=== PATIENT | female | born 1955 | race Asian ===

== ENCOUNTER 2018-01-27 14:43 | Inpatient (IN) | payer MEDICARE, MEDICAID ==
[~2018-01-27] VITALS: Ht 152.4 cm; Wt 93.9 kg
[~2018-01-27 14:43] MED LIST: LEVOTHYROXINE25 MCG ORAL; LOSARTAN POTAS100 MG ORAL; NIFEDIPINE ER30 MG ORAL; SIMVASTATIN40 MG ORAL; TOLTERODINE TART4 MG; UNOBMED
[2018-01-27 15:12] VITALS: BP 105/60
[2018-01-27] MEDS ORDERED: Ipratropium 0.02% Inh Soln 2.5ml UD HHN ONE (15:15)
[2018-01-27] MEDS ORDERED: Levalbuterol Inh UD 1.25mg/0.5ml HHN ONE (15:15)
--- NOTE | 2018-01-27 15:56 | Diagnostic Imaging Report ---
Indication: Dyspnea Comparison: 06/15/2014 A single view chest radiograph was obtained. Findings: There is pulmonary vascular prominence and cephalization with suggestion of mild interstitial edema. The heart is enlarged. Bones are osteopenic. IMPRESSION: Suspicion of mild CHF. Correlate clinically
[2018-01-27 16:15] LABS: BASOPHILS % (AUTO) 1.4 % (0.0-2.0); EOSINOPHILS % (AUTO) 1.9 % (0.0-3.0); HEMATOCRIT 44.1 % (37.0-47.0); HEMOGLOBIN 14.9 G/DL (12.0-16.0); LYMPHOCYTES % (AUTO) 31.2 % (20.0-45.0); MEAN CORPUSCULAR VOLUME 90 FL (80-99); MONOCYTES % (AUTO) 6.7 % (1.0-10.0); NEUTROPHILS % (AUTO) 58.9 % (45.0-75.0); PLATELET COUNT 241 K/UL (150-450); RED BLOOD COUNT 4.92 M/UL (4.20-5.40); RED CELL DISTRIBUTION WIDTH 12.9 % (11.6-14.8); WHITE BLOOD COUNT 6.9 K/UL (4.8-10.8)
--- NOTE | 2018-01-27 16:23 | Emergency Room Report ---
History of Present Illness General Chief Complaint: Dyspnea/Respdistress Source: Patient, Medical Record Present Illness HPI 62-year-old female presents ED for evaluation. Patient complaining of shortness of breath. Started today. Patient was seen at PMD office today where she developed shortness of breath. Had EKG which showed A. fib and was referred here. PMD is Dr. Samayoa. Patient complaining of bilateral leg swelling. Denies chest pain. Denies fevers or chills. No other aggravating or relieving factors. Denies any other associated symptoms Allergies: Coded Allergies: MEPERIDINE (Verified Allergy, Unknown, 06/14/14) SULFAMETHOXAZOLE (Verified Allergy, Unknown, 06/14/14) TRIMETHOPRIM (Verified Allergy, Unknown, 06/14/14) Patient History Past Medical History: HTN, CVA/TIA Social History: Denies: smoking, alcohol use, drug use Now: No Immunizations: UTD Reviewed Nursing Documentation: PMH: Agreed; PSxH: Agreed Nursing Documentation-PMH Past Medical History: No History, Except For Hx Cardiac Problems: Yes - enlarged heart Hx Hypertension: Yes Hx Pacemaker: No Hx Asthma: No Hx COPD: No Hx Diabetes: No Hx Cancer: No Hx Gastrointestinal Problems: No Hx Dialysis: No History Of Psychiatric Problem: No Hx Neurological Problems: Yes Hx Cerebrovascular Accident: Yes - STROKE 2011 Hx Seizures: No Review of Systems All Other Systems: negative except mentioned in HPI Physical Exam Vital Signs Date Time Temp Pulse Resp B/P (MAP) Pulse Ox O2 Delivery O2 Flow Rate FiO2 01/27/18 14:53 97.5 103 20 113/75 96 Room Air 97.5 01/27/18 16:00 21 Sp02 EP Interpretation: reviewed, normal General Appearance: no apparent distress, alert, GCS 15, non-toxic, obese Head: normocephalic, atraumatic Eyes: bilateral eye normal inspection, bilateral eye PERRL ENT: hearing grossly normal, normal pharynx, no angioedema, normal voice Neck: full range of motion, supple/symm/no masses Respiratory: chest non-tender, normal breath sounds, crackles, speaking full sentences, wheezing Cardiovascular #1: regular rate, rhythm, no edema Cardiovascular #2: 2+ carotid (R), 2+ carotid (L), 2+ radial (R), 2+ radial (L) , 2+ dorsalis pedis (R), 2+ dorsalis pedis (L) Gastrointestinal: normal bowel sounds, non tender, soft, non-distended, no guarding, no rebound Rectal: deferred Genitourinary: normal inspection, no CVA tenderness Musculoskeletal: back normal, gait/station normal, normal range of motion, swelling - 2+ pitting edema b/l LE Neurologic: alert, oriented x3, responsive, motor strength/tone normal, sensory intact, speech normal Psychiatric: judgement/insight normal, memory normal, mood/affect normal, no suicidal/homicidal ideation Reflexes: 3+ bicep (R), 3+ bicep (L), 3+ tricep (R), 3+ tricep (L), 3+ knee (R) , 3+ knee (L) Skin: normal color, no rash, warm/dry, well hydrated Lymphatic: no adenopathy Medical Decision Making Diagnostic Impression: Primary Impression: Dyspnea Qualified Codes: R06.00 - Dyspnea, unspecified Additional Impressions: CHF (congestive heart failure) Qualified Codes: I50.9 - Heart failure, unspecified Atrial fibrillation Qualified Codes: I48.91 - Unspecified atrial fibrillation ER Course Hospital Course 62-year-old female presents ED complaining of shortness of breath, leg swelling Differential diagnoses include: AK/unstable angina, contusion, muscle strain, PTX, rib fracture Clinical course Patient placed on stretcher. on cardiac cath lab manager. After initial history and physical I ordered labs, EKG, chest x-ray labs reviewed- no leukocytosis, hemoglobin/hematocrit stable, creatinine elevated, troponins negative, BNP elevated EKG - afib, no acute ischemic changes interpreted by me Chest x-ray- pulmonary congestion, cardiomegaly Lasix given. Case discussed with Dr. Samayoa and he agreed to accept the patient to his service for further care and support I. I feel this is a highly complex case requiring extensive working including EKG/Rhythm strip, Xray/CT/US, Blood/urine lab work, repeat exams while in ED, and administration of strong opiates/narcotics for pain control, admission to hospital or close patient follow up. Diagnosis - dyspnea, CHF, afib admitted to telemetry in serious condition Labs Test 01/27/18 15:30 White Blood Count 6.9 K/UL (4.8-10.8) Red Blood Count 4.92 M/UL (4.20-5.40) Hemoglobin 14.9 G/DL (12.0-16.0) Hematocrit 44.1 % (37.0-47.0) Mean Corpuscular Volume 90 FL (80-99) Mean Corpuscular Hemoglobin 30.4 PG (27.0-31.0) Mean Corpuscular Hemoglobin Concent 33.9 G/DL (32.0-36.0) Red Cell Distribution Width 12.9 % (11.6-14.8) Platelet Count 241 K/UL (150-450) Mean Platelet Volume 5.8 FL (6.5-10.1) Neutrophils (%) (Auto) 58.9 % (45.0-75.0) Lymphocytes (%) (Auto) 31.2 % (20.0-45.0) Monocytes (%) (Auto) 6.7 % (1.0-10.0) Eosinophils (%) (Auto) 1.9 % (0.0-3.0) Basophils (%) (Auto) 1.4 % (0.0-2.0) Sodium Level 142 MMOL/L (136-145) Potassium Level 3.7 MMOL/L (3.5-5.1) Chloride Level 106 MMOL/L (98-107) Carbon Dioxide Level 28 MMOL/L (21-32) Anion Gap 8 mmol/L (5-15) Blood Urea Nitrogen 12 mg/dL (7-18) Creatinine 0.9 MG/DL (0.55-1.30) Estimat Glomerular Filtration Rate > 60 mL/min (>60) Glucose Level 134 MG/DL (74-106) Calcium Level 9.0 MG/DL (8.5-10.1) Total Bilirubin 0.7 MG/DL (0.2-1.0) Aspartate Amino Transf (AST/SGOT) 18 U/L (15-37) Alanine Aminotransferase (ALT/SGPT) 26 U/L (12-78) Alkaline Phosphatase 53 U/L (46-116) Total Creatine Kinase 117 U/L (26-308) Creatine Kinase MB 1.5 NG/ML (0.0-3.6) Creatine Kinase MB Relative Index 1.2 Troponin I 0.000 ng/mL (0.000-0.056) Pro-B-Type Natriuretic Peptide 585 pg/mL (0-125) Total Protein 7.7 G/DL (6.4-8.2) Albumin 3.7 G/DL (3.4-5.0) Globulin 4.0 g/dL Albumin/Globulin Ratio 0.9 (1.0-2.7) EKG Diagnostic Results Rate: normal Rhythm: other - afib ST Segments: no acute changes ASA given to the pt in ED: No Rhythm Strip Diag. Results EP Interpretation: yes Rhythm: NSR, no PVC's, no ectopy Chest X-Ray Diagnostic Results Chest X-Ray Diagnostic Results : Chest X-Ray Ordered: Yes # of Views/Limited/Complete: 1 View Indication: Shortness of Breath EP Interpretation: Yes Interpretation: no consolidation, no pneumothorax, other - cardiomegaly. interstitial edema Impression: Other - chf Electronically Signed by: Electronically signed by Phoenix Godoy MD Last Vital Signs Date Time Temp Pulse Resp B/P (MAP) Pulse Ox O2 Delivery O2 Flow Rate FiO2 01/27/18 16:02 77 20 Room Air 21 01/27/18 16:00 99 01/27/18 15:12 105/60 01/27/18 14:53 97.5 97.5 Status: improved Disposition: ADMITTED INPATIENT Condition: Serious Phoenix Godoy MD January 27, 2018 16:23
[2018-01-27 16:35] LABS: ANION GAP 8 mmol/L (5-15); BLOOD UREA NITROGEN 12 mg/dL (7-18); CARBON DIOXIDE 28 MMOL/L (21-32); CHLORIDE 106 MMOL/L (98-107); CREATININE 0.9 MG/DL (0.55-1.30); POTASSIUM 3.7 MMOL/L (3.5-5.1); SODIUM 142 MMOL/L (136-145)
[2018-01-27 16:50] LABS: ALANINE AMINOTRANSFERASE 26 U/L (12-78); ALBUMIN 3.7 G/DL (3.4-5.0); ALBUMIN/GLOBULIN RATIO 0.9 (1.0-2.7); ALKALINE PHOSPHATASE 53 U/L (46-116); ASPARTATE AMINO TRANSFERASE 18 U/L (15-37); BILIRUBIN,TOTAL 0.7 MG/DL (0.2-1.0); CKMB 1.5 NG/ML (0.0-3.6); CREATINE KINASE 117 U/L (26-308)
[2018-01-27] MEDS ORDERED: HYDRALAZINE HC100 MG ORAL (18:22)
[2018-01-27] MEDS ORDERED: B COMPLEX1 EACH ORAL (18:22)
[2018-01-27] MEDS ORDERED: CALCIUM + VITA1 EAC1 PO (18:22)
[2018-01-27] MEDS ORDERED: ASPIRIN EC81 MG ORAL (18:22)
[2018-01-27] MEDS ORDERED: IBUPROFEN600 MG ORAL (18:22)
[2018-01-27] MEDS ORDERED: VITAMIN E400 UNI8 PO (18:22)
[2018-01-27] MEDS ORDERED: FISH OIL CAP1000 MG ORAL (18:22)
[2018-01-27 18:46] VITALS: BP 123/83
[2018-01-27] MEDS ORDERED: Milk of Magnesia 30ml Ud ORAL PRN (20:50)
[2018-01-27] MEDS ORDERED: Zolpidem 5mg tab ORAL PRN (21:00)
[2018-01-27] MEDS: Metoprolol Tartrate 50mg tab ORAL SCH (23:15)
[2018-01-27] MEDS: Eliquis 2.5mg tablet ORAL SCH (23:16)
[2018-01-28] VITALS: BP 102/57
--- NOTE | 2018-01-28 00:15 | Consultation ---
DATE OF CONSULTATION: 01/27/2018 CARDIOLOGY CONSULTATION CONSULTING PHYSICIAN: Moe Roberts M.D. REQUESTING PHYSICIAN: Osmin Samayoa M.D. REASON FOR CONSULTATION: Atrial fibrillation with rapid ventricular response. HISTORY OF PRESENT ILLNESS: This 62-year-old female presented to Dr. Samayoa's office today complaining of shortness of breath of one-day duration. The patient had an EKG done revealing atrial fibrillation. No prior history of atrial fibrillation is noted. The patient has also had bilateral leg swelling, but no chest pain, fever, chills, cough, sputum production or any GI symptoms. The patient has been compliant with medications. PAST MEDICAL HISTORY: Hypertension and history of cerebrovascular accident. MEDICATIONS: Prior to admission reviewed and reconciled. ALLERGIES: Sulfa and meperidine. SOCIAL HISTORY: Negative for smoking, alcohol, or substance abuse. FAMILY HISTORY: Noncontributory. REVIEW OF SYSTEMS: A 10-point review of systems performed, all systems negative other than noted above. PHYSICAL EXAMINATION: VITAL SIGNS: Blood pressure 113/75, pulse 103, respiratory rate 20 and afebrile. HEENT: Conjunctivae are pink. Sclerae are anicteric. Oropharynx clear. NECK: Supple. Mild jugular venous distention. LUNGS: With few rales. CARDIAC: Irregularly irregular. Normal S1 and S2. No murmur. ABDOMEN: Soft and nontender. EXTREMITIES: With 1+ dependent edema. NEUROLOGIC: No focal deficits seen. LABORATORY AND DIAGNOSTIC DATA: Natriuretic peptide is 585. Troponin is 0. White count 6.9 and hemoglobin 14.9. Potassium 3.7, BUN 12, and creatinine 0.9. IMPRESSION: 1. New onset atrial fibrillation with rapid ventricular response. 2. Acute diastolic congestive heart failure. 3. Hypertensive heart disease. 4. History of prior cerebrovascular accident, possibly related to cardioembolic event. PLAN: 1. Cardiac monitoring. 2. Beta-blockade for rate control. 3. Diuresis. 4. Full anticoagulation. 5. Echocardiogram. 6. Check thyroid panel. 7. Adjust antihypertensives to optimal clinical parameters. 8. We will not try to cardiovert without RIVER evaluation of left atrial appendage. Moe Roberts M.D. DR: CHEMO JOB#: [id number] CC:
[2018-01-28 02:09] LABS: ALANINE AMINOTRANSFERASE 28 U/L (12-78); ALBUMIN 3.7 G/DL (3.4-5.0); ALBUMIN/GLOBULIN RATIO 1.1 (1.0-2.7); ALKALINE PHOSPHATASE 55 U/L (46-116); ANION GAP 8 mmol/L (5-15); ASPARTATE AMINO TRANSFERASE 18 U/L (15-37); BILIRUBIN,TOTAL 0.4 MG/DL (0.2-1.0); BLOOD UREA NITROGEN 14 mg/dL (7-18); CALCIUM 8.9 MG/DL (8.5-10.1); CARBON DIOXIDE 29 MMOL/L (21-32); CHLORIDE 106 MMOL/L (98-107); CREATININE 0.9 MG/DL (0.55-1.30); POTASSIUM 4.2 MMOL/L (3.5-5.1); SODIUM 143 MMOL/L (136-145)
[2018-01-28 04:00] VITALS: BP 108/63
[2018-01-28] MEDS: Levothyroxine 25mcg tab ORAL SCH (05:43)
[2018-01-28 08:00] VITALS: BP 96/65
[2018-01-28] MEDS ORDERED: HydrALAZINE 50mg tab ORAL SCH (09:00)
[2018-01-28] MEDS ORDERED: Heparin 5000 units/ml inj SUBQ SCH (09:00)
[2018-01-28] MEDS: Vitamin B Complex Tab ORAL SCH (09:09)
[2018-01-28] MEDS: Calcium Carbonate 500mg w/Vit D 200iu tab PO SCH (09:09)
[2018-01-28] MEDS: Aspirin EC 81mg tab ORAL SCH (09:09)
[2018-01-28] MEDS: Eliquis 2.5mg tablet ORAL SCH ×2 (09:09→17:39)
[2018-01-28] MEDS: Metoprolol Tartrate 50mg tab ORAL SCH ×2 (09:47→21:08)
[2018-01-28 12:00] VITALS: BP 108/73
--- NOTE | 2018-01-28 13:18 | Cardiology Report ---
APPROVED REPORT EXAM: Two-dimensional and M-mode echocardiogram with Doppler and color Doppler. INDICATION Atrial Fibrillation M-Mode DIMENSIONS IVSd1.1 (0.7-1.1cm)Left Atrium (MM)4.4 (1.6-4.0cm) LVDd5.1 (3.5-5.6cm)Aortic Root3.8 (2.0-3.7cm) IVSs1.4 cm LVDs3.4 (2.5-4.0cm) PWs1.2 cm Technically difficult study due to poor acoustical windows. Normal left ventricular chamber size, systolic function and wall motion to extent visualized. Left ventricular ejection fraction estimated to be 55-60 %. Study quality precludes accurate assessment of regional wall motion. Mild left ventricular hypertrophy by 2-D. No evidence of pericardial effusion. Left and right atrial sizes at upper limits of normal. Right ventricular chamber size is within normal limits. Focal aortic valve sclerosis with adequate cusp excursion. Thickened mitral valve leaflets with normal excursion. Mitral annulus and aortic root calcification. Pulmonic valve not well visualized. Normal tricuspid valve structure. IVC dilated at 2.2 cm with physiologic collapse suggestive of mildly increased RA pressure. A color flow and spectral Doppler study was performed and revealed: Mild aortic regurgitation. Moderate mitral regurgitation. Can not determine left ventricular diastolic function by mitral diastolic velocities due to atrial fibrillation. Mild tricuspid regurgitation. Tricuspid systolic velocities suggests peak right ventricular systolic pressure of 31 mmHg.
[2018-01-28] MEDS: HydrALAZINE 25mg tab ORAL SCH ×2 (13:31→21:54)
[2018-01-28 16:00] VITALS: BP 123/70
[2018-01-28] MEDS ORDERED: Losartan 50mg tab ORAL SCH (16:30)
--- NOTE | 2018-01-28 18:30 | History and Physical Report ---
DATE OF ADMISSION: 01/27/2018 CHIEF COMPLAINT: AFib with RVR. HISTORY OF PRESENT ILLNESS: The patient is a 62-year-old female. She has a prior history of hypertensive heart disease and sleep apnea. She has a history of stroke with some left-sided weakness. She presented from her physician's office with complaints of shortness of breath. She had been short of breath for two days. On evaluation in her physician's office, she was noted to be in AFib with RVR. She was sent to the emergency room. According to the patient, she has had some palpitations and shortness of breath for the last several days. She was initially in AFib with RVR, but remains in AFib. She has been started on Eliquis. In the emergency room, her x-ray did show evidence of CHF. Her troponins were negative. CURRENT MEDICATIONS: Reconciled and reviewed. ALLERGIES: Demerol, sulfa, and trimethoprim. FAMILY HISTORY: Significant for history of ovarian cancer. PAST SURGICAL HISTORY: History of total abdominal hysterectomy. REVIEW OF SYSTEMS: GENERAL: No fever or chills. HEENT: No headaches or visual changes. CARDIOPULMONARY: Positive shortness of breath and palpitations. GASTROINTESTINAL: No nausea or vomiting. GENITOURINARY: No urgency or frequency. MUSCULOSKELETAL: No joint pain or swelling. NEUROLOGIC: No evidence of seizures. Positive history of stroke with some left-sided weakness. PHYSICAL EXAMINATION: VITAL SIGNS: Temperature 97.3, pulse 80, respirations 21, and blood pressure 96/65. GENERAL: The patient is well developed, in no apparent distress. HEART: Irregularly irregular. LUNGS: Clear. ABDOMEN: Soft, nontender, and nondistended. EXTREMITIES: Without clubbing or cyanosis. LABORATORY DATA: Labs show white count of 6, hemoglobin 14, hematocrit 44, and platelets of 241. Sodium 143, potassium 4.2, chloride 106, bicarbonate 29, BUN 14, and creatinine was 0.9. Troponin is negative x3. TSH was 4.4. showed AFib. Chest x-ray with mild CHF. ASSESSMENT: This is a pleasant female with complaints of atrial fibrillation with rapid ventricular response, mild congestive heart failure. She has a history of sleep apnea and prior stroke. PLAN: 1. Cardiology consultation. 2. Rate control per . 3. Eliquis for stroke prophylaxis. 4. CPAP at night. 5. Followup echo. Adama Jaramillo M.D. DR: MAUREEN JOB#: [id number] CC:
[2018-01-28 20:00] VITALS: BP 133/85
[2018-01-28] MEDS ORDERED: Atorvastatin 20mg tab ORAL SCH (21:00)
--- NOTE | 2018-01-28 22:30 | Progress Note ---
DATE: 01/28/2018 CARDIOLOGY PROGRESS NOTE SUBJECTIVE: The patient has no chest pain or shortness of breath. She states she was urinating all night following a dose of diuretic. Today, blood pressure parameters are low, but the patient denies dizziness. Atrial fibrillation remains on monitor and rate controlled. OBJECTIVE: VITAL SIGNS: Blood pressure 108/73, pulse 68, respiratory rate 20, and afebrile. LUNGS: Clear. CARDIAC: Irregularly irregular. Normal S1 and S2. ABDOMEN: Soft. EXTREMITIES: Trace edema. Left-sided weakness. LABORATORY AND DIAGNOSTIC DATA: Echocardiogram today revealed normal ejection fraction, moderate mitral regurgitation, and mild aortic regurgitation. Troponin negative. Potassium 4.2. Magnesium 2.0. TSH 4.4. IMPRESSION: 1. Paroxysmal atrial fibrillation, now with rate control. 2. Acute diastolic congestive heart failure, now compensated. 3. History of CVA with left weakness. 4. Borderline elevation of TSH. RECOMMENDATIONS: 1. Continue apixaban for cardioembolic prophylaxis. 2. Hold antihypertensives for low range of blood pressure. 3. Hydralazine dose was decreased. 4. Maintain beta-juliet for rate control. 5. Repeat thyroid function in four to six weeks. 6. Hold additional diuresis. Moe Roberts M.D. DR: CHEMO JOB#: [id number] CC:
[2018-01-29] VITALS: BP 121/50
[2018-01-29 04:00] VITALS: BP 126/90
[2018-01-29] MEDS: Levothyroxine 25mcg tab ORAL SCH (05:50)
[2018-01-29] MEDS: HydrALAZINE 25mg tab ORAL SCH (05:50)
[2018-01-29 08:00] VITALS: BP 124/73
[2018-01-29] MEDS ORDERED: ELIQUIS2.5 MG ORAL (08:54)
[2018-01-29] MEDS ORDERED: METOPROLOL TART50 MG ORAL (08:54)
[2018-01-29] MEDS: Calcium Carbonate 500mg w/Vit D 200iu tab PO SCH (09:25)
[2018-01-29] MEDS: Vitamin B Complex Tab ORAL SCH (09:27)
[2018-01-29] MEDS: Aspirin EC 81mg tab ORAL SCH (09:27)
[2018-01-29] MEDS: Eliquis 2.5mg tablet ORAL SCH (09:28)
[2018-01-29] MEDS ORDERED: Metoprolol Tartrate 50mg tab ORAL SCH (09:30)
[2018-01-29 12:00] VITALS: BP 109/67
--- NOTE | 2018-01-30 03:15 | Discharge Summary ---
DATE OF ADMISSION: 01/27/2018 DATE OF DISCHARGE: 01/29/2018 ADMISSION DIAGNOSES: 1. Atrial fibrillation with rapid ventricular response. 2. Congestive heart failure. 3. Hypertension. 4. Hypothyroidism. DISCHARGE DIAGNOSES: 1. Atrial fibrillation with rapid ventricular response. 2. Congestive heart failure. 3. Hypertension. 4. Hypothyroidism. HOSPITAL COURSE: The patient is a pleasant female, who is admitted with complaints of atrial fibrillation with rapid ventricular response. She is rate controlled with beta-blockade. She was started on Eliquis. She was also started on thyroid replacement therapy. On discharge, she was stable. She will be discharged home with close outpatient followup. DISCHARGE MEDICATIONS: Please see discharge medication list for discharge medications. DIET: Cardiac diet. ACTIVITIES: Ad-nino. Adama Jaramillo M.D. DR: CHANTEL JOB#: [id number] CC:
--- NOTE | 2018-01-30 12:00 | Cardiology Report ---
APPROVED REPORT EKG Measurement Heart [id number] Atrial fibrillation Low voltage QRS Abnormal ECG
--- NOTE | 2018-01-31 02:15 | Progress Note ---
DATE: 01/29/2018 CARDIOLOGY PROGRESS NOTE SUBJECTIVE: No chest pain. No shortness of breath. Tolerating medications. Monitored rhythm atrial fibrillation with rate 58 to 91. OBJECTIVE: NECK: Supple. LUNGS: Clear. CARDIAC: Irregularly irregular. Normal S1 and S2. ABDOMEN: Soft. EXTREMITIES: No edema. IMPRESSION AND PLAN: 1. Paroxysmal atrial fibrillation, now with controlled ventricular response. We will continue cardioembolic prophylaxis with apixaban. 2. Acute diastolic congestive heart failure, now compensated following diuresis and optimization of ventricular rate. 3. Hypertensive heart disease with controlled blood pressure. 4. History of cerebrovascular accident with left-sided weakness. 5. Borderline TSH elevation, to repeat as outpatient. 6. Discharge medication regimen reviewed and reconciled. Moe Roberts M.D. DR: CHEMO JOB#: [id number] CC:
== END 2018-01-29 13:35 | disposition home or self-care (01) | DRG 308 ==
LOC: EDBEDREQ 15:13 → EMR 16:40 → EDBEDREQ 16:58 → 2E 17:21
DX: I48.0 Paroxysmal atrial fibrillation (principal); I50.31 Acute diastolic (congestive) heart failure; I11.0 Hypertensive heart disease with heart failure; Z88.6 Allergy status to analgesic agent; Z88.1 Allergy status to other antibiotic agents; Z88.2 Allergy status to sulfonamides; G47.30 Sleep apnea, unspecified; Z86.73 Personal history of transient ischemic attack (TIA), and cerebral infarction without residual deficits; E03.9 Hypothyroidism, unspecified
CPT/HCPCS: 36415; 71045; 80053; 82550; 82553; 83735; 83880; 84443; 84484; 85025; 93005; 93306; 94640; 94664; 99285; J8499

== ENCOUNTER 2019-10-25 17:23 | Inpatient (IN) | payer MEDICARE, MEDICAID ==
[~2019-10-25] VITALS: Ht 152.4 cm; Wt 102.1 kg
[~2019-10-25 17:23] MED LIST changes: +ADALAT10 MG ORAL; +ASPIRIN EC81 MG ORAL; +B COMPLEX1 EACH ORAL; +CALCIUM + VITA1 EAC1 PO; +ELIQUIS2.5 MG ORAL; +FISH OIL CAP1000 MG ORAL; +FUROSEMIDE20 M1 ORAL; +HYDRALAZINE HC100 MG ORAL; +HYDRALAZINE HCL10 MG ORAL; +IBUPROFEN600 MG ORAL; +METOPROLOL TART50 MG ORAL; +VITAMIN E400 UNI8 PO
[2019-10-25] MEDS ORDERED: Albuterol/Ipratropium 3ml neb HHN PRN (19:00)
[2019-10-25 20:00] VITALS: BP 149/90
[2019-10-25] MEDS: Albuterol/Ipratropium 3ml neb HHN SCH ×2 (20:08→23:25)
--- NOTE | 2019-10-25 20:22 | NUR ---
NURSE NOTES: Received pt from DEAN Solano. Pt awake, alert, and talkative. Bed in lowest position. Call light within reach. Will continue to monitor.
[2019-10-25 20:27] LABS: ANION GAP 9 mmol/L (5-15); BLOOD UREA NITROGEN 9 mg/dL (7-18); CALCIUM 8.6 MG/DL (8.5-10.1); CARBON DIOXIDE 28 MMOL/L (21-32); CHLORIDE 102 MMOL/L (98-107); CREATININE 1.1 MG/DL (0.55-1.30); HEMATOCRIT 45.7 % (37.0-47.0); HEMOGLOBIN 15.3 G/DL (12.0-16.0); MEAN CORPUSCULAR VOLUME 89 FL (80-99); PLATELET COUNT 240 K/UL (150-450); POTASSIUM 4.1 MMOL/L (3.5-5.1); RED BLOOD COUNT 5.14 M/UL (4.20-5.40); RED CELL DISTRIBUTION WIDTH 12.1 % (11.6-14.8); SODIUM 139 MMOL/L (136-145); WHITE BLOOD COUNT 9.2 K/UL (4.8-10.8)
--- NOTE | 2019-10-25 20:39 | NUR ---
NURSE NOTES: pt admitted in stable condition. pt is direct admit. pt kept cell ph, dentures and glasses. Vs bp 132/83, Hr 129, O298, R24, T100.4, no pain. pt skin is intact. pt bed in lowest position and locked, call light within reach. Family at bedside. Belonging sheet signed by pt. pt on droplet precaution influenza A positive. Pt is on surveillance system monitor no signs of cardiac or respiratory distress at this tony. Doctor notified of temperature.
--- NOTE | 2019-10-25 20:50 | NUR ---
HAND-OFF: Report given to Shalonda/DEAN,pt in stable condition.
[2019-10-25] MEDS: Solu-MEDROL 125mg Inj IVP SCH (21:57)
[2019-10-25] MEDS: Atorvastatin 20mg tab ORAL SCH (21:58)
[2019-10-25] MEDS: cefTRIAXone 1 GM in D5W 55 ML IVPB SCH (21:59)
[2019-10-25] MEDS: HydrALAZINE 50mg tab ORAL SCH (22:00)
[2019-10-26] VITALS (8 sets, daily range): BP systolic 100–145; BP diastolic 58–75
[2019-10-26] MEDS: Albuterol/Ipratropium 3ml neb HHN SCH ×6 (03:30→23:18)
--- NOTE | 2019-10-26 04:48 | NUR ---
NURSE NOTES: Called and left a message with Dr. Samayoa regarding pts uncontrolled afib all shift. Awaiting call back.
[2019-10-26] MEDS: HydrALAZINE 50mg tab ORAL SCH ×3 (05:03→21:23)
--- NOTE | 2019-10-26 05:45 | NUR ---
NURSE NOTES: Dr. Samayoa ordered the following: - amiodarone 200 mg bid - tamiflu 75 bid - 1 dose cardizem 10 mg ivp Will input orders and will continue to monitor.
[2019-10-26] MEDS ORDERED: dilTIAZem HCl 25mg/5ml Inj IVP SCH (06:00)
[2019-10-26 07:28] LABS: BASOPHILS % (AUTO) 0.4 % (0.0-2.0); HEMATOCRIT 45.3 % (37.0-47.0); HEMOGLOBIN 15.3 G/DL (12.0-16.0); LYMPHOCYTES % (AUTO) 16.2 % (20.0-45.0); MEAN CORPUSCULAR VOLUME 89 FL (80-99); MONOCYTES % (AUTO) 1.7 % (1.0-10.0); NEUTROPHILS % (AUTO) 81.7 % (45.0-75.0); PLATELET COUNT 223 K/UL (150-450); RED BLOOD COUNT 5.08 M/UL (4.20-5.40); RED CELL DISTRIBUTION WIDTH 12.1 % (11.6-14.8); WHITE BLOOD COUNT 5.7 K/UL (4.8-10.8)
--- NOTE | 2019-10-26 07:39 | NUR ---
HAND-OFF: Report given to DEAN Solano. Pt stable.
[2019-10-26 07:47] LABS: ANION GAP 13 mmol/L (5-15); BLOOD UREA NITROGEN 14 mg/dL (7-18); CALCIUM 8.6 MG/DL (8.5-10.1); CARBON DIOXIDE 25 MMOL/L (21-32); CHLORIDE 104 MMOL/L (98-107); CREATININE 1.2 MG/DL (0.55-1.30); POTASSIUM 3.6 MMOL/L (3.5-5.1); SODIUM 142 MMOL/L (136-145)
--- NOTE | 2019-10-26 08:24 | NUR ---
NURSE NOTES: pt cleaning herself in the restroom. Pt is very tachycardic (150-160) but as soon as relaxed Hr went down to 110-120's. Pt was explained that she needs to stay in bed and not overexert herself to avoid higher HR. Pt on cardiac rehabilitation program director. Pt on O2 sat and using Bipap PRN. Bed is locked and lowest position. will continue to monitor labs and V/s.
[2019-10-26] MEDS ORDERED: Metoprolol Succinate XL 50mg tab ORAL SCH (09:00)
[2019-10-26] MEDS: Docusate 100mg cap ORAL SCH ×2 (09:12→18:15)
[2019-10-26] MEDS: Eliquis 5mg tablet ORAL SCH ×2 (09:12→18:16)
[2019-10-26] MEDS: Ascorbic Acid 500mg tab ORAL SCH (09:13)
[2019-10-26] MEDS: Solu-MEDROL 125mg Inj IVP SCH (09:13)
[2019-10-26] MEDS: Amiodarone 200mg tab ORAL SCH ×2 (09:19→18:16)
[2019-10-26] MEDS: Losartan 50mg tab ORAL SCH (09:20)
--- NOTE | 2019-10-26 10:39 | NUR ---
RADIOLOGY: PCXR COMPLETED [id number]. NF
--- NOTE | 2019-10-26 11:21 | Diagnostic Imaging Report ---
Indication: Shortness of breath Technique: One view of the chest Comparison: 02/23/2018 Findings: Body habitus limits evaluation. The heart is borderline enlarged. Lungs pleural spaces are clear. Less optimal inspiration currently. No other significant interim change Impression: Borderline cardiomegaly. No acute process
--- NOTE | 2019-10-26 12:10 | NUR ---
NURSE NOTES: reported to doctor Raysa and Doctor Yao pt was a high as 165-170
--- NOTE | 2019-10-26 12:14 | NUR ---
CASE MANAGEMENT:REVIEW 64 YR OLD FEMALE DIRECTLY ADMITTED SI: AFIB. CHF 98.8 117 20 149/90 93% ON 2L/NC IS: IV SOLUMEDROL Q12 IV ROCEPHIN Q24 IV LASIX QD TOPROL PO QD COZAAR PO QD ELIQUIS PO BID AMIODARONE PO BID TAMIFLU PO BID DUONEB HHN Q4HRS RTC : TO TELEMETRY
--- NOTE | 2019-10-26 13:29 | NUR ---
RADIOLOGY DEPT., CHEST X-RAY DONE.-P.DYE
--- NOTE | 2019-10-26 15:32 | Cardiac Electrophysiology PN ---
Subjective Subjective [id number] HTN, Fib with RVR, CHF due to DD, Positive for flu, CVA Objective Last 24 Hour Vital Signs Date Time Temp Pulse Resp B/P (MAP) Pulse Ox O2 Delivery O2 Flow Rate FiO2 10/26/19 15:16 112/63 10/26/19 12:05 2.0 10/26/19 11:54 2.0 10/26/19 10:48 110 20 99 Nasal Cannula 2.0 28 108 20 97 10/26/19 09:20 112/61 10/26/19 09:20 148 112/61 10/26/19 09:00 Nasal Cannula 2.0 10/26/19 08:00 98.6 111 20 131/74 (93) 96 10/26/19 07:59 98 Nasal Cannula 2.0 28 10/26/19 07:55 105 20 99 Nasal Cannula 2.0 28 95 20 97 10/26/19 06:47 99 104/58 (73) 94 10/26/19 06:34 118 125/75 10/26/19 06:31 118 125/75 (92) 93 10/26/19 05:03 131/74 10/26/19 04:00 109 10/26/19 04:00 98.6 111 20 131/74 (93) 96 10/26/19 03:34 70 16 98 Facial 30 74 16 99 Bi-Pap 30 10/26/19 00:47 88 28 98 Facial 30 10/26/19 00:00 98.5 19 120/68 (85) 97 10/26/19 00:00 126 10/25/19 23:28 132 18 99 Nasal Cannula 2.0 28 130 18 96 10/25/19 23:27 96 Nasal Cannula 2.0 28 10/25/19 23:19 Nasal Cannula 2.0 10/25/19 22:00 149/90 10/25/19 21:00 Nasal Cannula 2.0 10/25/19 20:13 120 18 99 Nasal Cannula 2.0 28 117 18 96 10/25/19 20:11 117 18 97 Nasal Cannula 2.0 28 10/25/19 20:00 2.0 10/25/19 20:00 108 10/25/19 20:00 98.8 20 149/90 (109) 93 Intake and Output 10/25/19 10/26/19 19:00 07:00 Intake Total 240 ml Balance 240 ml Intake Oral 240 ml # Voids 3 # Bowel Movements 2 Laboratory Tests Test 10/25/19 20:00 10/26/19 05:20 White Blood Count 9.2 K/UL (4.8-10.8) 5.7 K/UL (4.8-10.8) Red Blood Count 5.14 M/UL (4.20-5.40) 5.08 M/UL (4.20-5.40) Hemoglobin 15.3 G/DL (12.0-16.0) 15.3 G/DL (12.0-16.0) Hematocrit 45.7 % (37.0-47.0) 45.3 % (37.0-47.0) Mean Corpuscular Volume 89 FL (80-99) 89 FL (80-99) Mean Corpuscular Hemoglobin 29.8 PG (27.0-31.0) 30.0 PG (27.0-31.0) Mean Corpuscular Hemoglobin Concent 33.5 G/DL (32.0-36.0) 33.7 G/DL (32.0-36.0) Red Cell Distribution Width 12.1 % (11.6-14.8) 12.1 % (11.6-14.8) Platelet Count 240 K/UL (150-450) 223 K/UL (150-450) Mean Platelet Volume 5.7 FL (6.5-10.1) L 5.5 FL (6.5-10.1) L Neutrophils (%) (Auto) % (45.0-75.0) 81.7 % (45.0-75.0) H Lymphocytes (%) (Auto) % (20.0-45.0) 16.2 % (20.0-45.0) L Monocytes (%) (Auto) % (1.0-10.0) 1.7 % (1.0-10.0) Eosinophils (%) (Auto) % (0.0-3.0) 0.0 % (0.0-3.0) Basophils (%) (Auto) % (0.0-2.0) 0.4 % (0.0-2.0) Differential Total Cells Counted 100 Neutrophils % (Manual) 87 % (45-75) H Lymphocytes % (Manual) 10 % (20-45) L Monocytes % (Manual) 2 % (1-10) Eosinophils % (Manual) 1 % (0-3) Basophils % (Manual) 0 % (0-2) Band Neutrophils 0 % (0-8) Platelet Estimate Adequate Platelet Morphology Normal Red Blood Cell Morphology Normal Sodium Level 139 MMOL/L (136-145) 142 MMOL/L (136-145) Potassium Level 4.1 MMOL/L (3.5-5.1) 3.6 MMOL/L (3.5-5.1) Chloride Level 102 MMOL/L (98-107) 104 MMOL/L (98-107) Carbon Dioxide Level 28 MMOL/L (21-32) 25 MMOL/L (21-32) Anion Gap 9 mmol/L (5-15) 13 mmol/L (5-15) Blood Urea Nitrogen 9 mg/dL (7-18) 14 mg/dL (7-18) Creatinine 1.1 MG/DL (0.55-1.30) 1.2 MG/DL (0.55-1.30) Estimat Glomerular Filtration Rate 50.3 mL/min (>60) 45.5 mL/min (>60) Glucose Level 218 MG/DL (74-106) H 226 MG/DL (74-106) H Calcium Level 8.6 MG/DL (8.5-10.1) 8.6 MG/DL (8.5-10.1) Michael Saunders MD Oct 26, 2019 15:32
[2019-10-26] MEDS: Metoprolol Succinate XL 50mg tab ORAL SCH (18:16)
--- NOTE | 2019-10-26 19:45 | NUR ---
HAND-OFF: Report given to Shalonda brito in stable condition.
--- NOTE | 2019-10-26 19:50 | NUR ---
NURSE NOTES: Received pt from DEAN Solano. Pt awake, alert, and talkative. Bed in lowest position. Call light within reach. Will continue to monitor.
--- NOTE | 2019-10-26 20:00 | Consultation ---
DATE OF CONSULTATION: 10/26/2019 CARDIOLOGY CONSULTATION CONSULTING PHYSICIAN: Michael Saunders M.D. REFERRING PHYSICIAN: Osmin Samayoa M.D. REASON FOR CONSULTATION: Atrial fibrillation with rapid ventricular response. HISTORY OF PRESENT ILLNESS: The patient is a very pleasant 64-year-old lady with history of hypertension and atrial fibrillation as well as history of prior CVA, who was last admitted to [facility] in February of 2018. The patient had atrial fibrillation with rapid ventricular response as well as diastolic dysfunction, hypertensive heart disease, as well as history of CVA, and obstructive sleep apnea. The patient was evaluated by Dr. Mahajan's office and the patient was found to be in atrial fibrillation with rapid ventricular response as well as being short of breath. The patient was recently admitted to the floor and a Cardiology consultation was obtained for further evaluation. Today, when she walked to the bathroom, she gets really tachycardic with the heart rate up to 180 beats per minute. REVIEW OF SYSTEMS: Review of systems was negative other than what was mentioned in the history of present illness. PAST MEDICAL HISTORY: As mentioned above. MEDICATIONS: Include Toprol-XL 50 daily, losartan 100 mg daily, Eliquis 5 mg b.i.d., amiodarone 200 b.i.d., and hydralazine 50 mg q.8 hours. FAMILY HISTORY: Noncontributory. SOCIAL HISTORY: She lives at home. Does not smoke or drink alcohol. PHYSICAL EXAM: VITAL SIGNS: Show blood pressure of 80/74, pulse is 100, respirations 18, and she is afebrile. NECK: Shows no JVD or carotid bruits. LUNGS: Clear. CARDIOVASCULAR: Irregular S1, S2 with no gallop. ABDOMEN: Soft. EXTREMITIES: No pitting edema. LABORATORY AND DIAGNOSTIC DATA: Labs show white count of 5.7, hematocrit 15.3, hematocrit of 45, and platelet count of 223,000. Sodium 142, potassium 3.6, BUN of 14, creatinine 1.2, and glucose of 226. ASSESSMENT/PLAN: 1. Atrial fibrillation with rapid ventricular response. I will increase metoprolol to 50 mg b.i.d. for better rate control. Continue Eliquis 5 mg b.i.d. The patient is also on amiodarone 200 mg b.i.d. 2. Hypertensive heart disease. Continue Cozaar 50 daily, metoprolol 50 b.i.d., hydralazine 50 mg every 8 hours, as well as Lasix 40 mg IV daily. 3. Congestive heart failure with diastolic dysfunction. Continue Lasix. Echocardiogram will be repeated. 4. Hyperlipidemia, on Lipitor. 5. Influenza A. Further evaluation by Dr. Samayoa. The patient is currently on Solu-Medrol and ceftriaxone. superimposed pneumonia. Thank you very much for allowing me to participate in the care of this patient. Please do not hesitate to contact me for any questions regarding my evaluation. Michael Saunders M.D. DR: NANDO JOB#: [id number] CC:
[2019-10-26] MEDS: Atorvastatin 20mg tab ORAL SCH (21:22)
[2019-10-26] MEDS: cefTRIAXone 1 GM in D5W 55 ML IVPB SCH (21:23)
[2019-10-27] VITALS: BP 92/64
--- NOTE | 2019-10-27 01:15 | History and Physical Report ---
DATE OF ADMISSION: 10/25/2019 REASON FOR ADMISSION: Positive influenza, shortness of breath, pulmonary edema. HISTORY OF PRESENT ILLNESS: This 64-year-old female is well known to me. The patient presented to the office on 10/25/2019 with increasing shortness of breath and increased respiratory distress. The patient had a swab done, which was positive for influenza and the patient also with rapid atrial fibrillation. The patient also had some cough and congestion. The patient was felt to require acute admission. She was admitted for further care and management. She also noted to have some bronchospasm. She was given some steroids in the office. The patient continued to have rapid atrial fibrillation. Cardiology was called to assist and evaluate further. The patient's care discussed and reviewed in detail. The patient's findings reviewed with the patient. The patient overall feels better than yesterday. She was started on amiodarone this morning due to rapid atrial fibrillation. PAST MEDICAL HISTORY: Notable for prior history of respiratory failure, atrial fibrillation, asthma, history of total knee arthroplasty, history of pulmonary edema, history of carotid disease, history of hypothyroidism, history of atrial fibrillation, hypertension, hypercholesterolemia. MEDICATIONS: Reviewed. ALLERGIES: Reviewed. SOCIAL HISTORY: She does not smoke or drink. She lives with family. REVIEW OF SYSTEMS: All 10 points reviewed and otherwise negative. FAMILY HISTORY: Otherwise noncontributory to the above. PHYSICAL EXAMINATION: GENERAL: A well-developed female. VITAL SIGNS: Overall, heart rate now improving. The patient is seen earlier today with significantly elevated heart rate, now down to 80, blood pressure is 112/61, saturation 97% on 2 liters, the respiratory rate is 18. HEENT: Negative. Extraocular movements are grossly intact. NECK: Supple. LUNGS: With reduced breath sounds and crackles and rhonchi. CARDIAC: S1, S2. Irregularly irregular, but now more controlled. ABDOMEN: Overall soft, nontender. EXTREMITIES: Mild edema. NEUROLOGIC: Grossly nonfocal, alert. MEDICATIONS: Reviewed. LABORATORY DATA: Reviewed. The chest x-ray with no clear infiltrate. Overall better than yesterday's x-ray in the office. CBC appears to be normal. Chemistries are overall normal. Blood sugar is 226. IMPRESSION: 1. Influenza positive. 2. Atrial fibrillation with rapid ventricular response, likely underlying bronchitis/bronchospasm. Atrial fibrillation is chronic. 3. Chronic pulmonary edema with fluid overload. 4. Hypothyroidism. 5. Respiratory distress. RECOMMENDATIONS: Supportive care. Continue to monitor. Diurese. Discontinue steroids for now and monitor. Monitor blood sugars and reassess. Control rate and reassess. I will follow up clinically for further changes. Hope to see further improvement. Maintain isolation. Tamiflu added for now for further assistance with flu-like symptoms and we will assist with disposition once improved. Osmin Samayoa M.D. DR: MONSERRAT JOB#: [id number] CC:
[2019-10-27] MEDS: Albuterol/Ipratropium 3ml neb HHN SCH ×6 (02:59→20:50)
--- NOTE | 2019-10-27 03:53 | NUR ---
NURSE NOTES: Called and left a message with Dr. Saunders regarding pts episode of V-tach last night. Awaiting call back.
[2019-10-27 04:00] VITALS: BP 115/65
[2019-10-27] MEDS: HydrALAZINE 50mg tab ORAL SCH ×3 (05:48→21:32)
--- NOTE | 2019-10-27 06:55 | NUR ---
NURSE NOTES: Dr. Saunders called back with the following orders stat: - BMP, Mg, Phos, and ECG Will input orders and will continue to monitor.
[2019-10-27 07:07] LABS: ALANINE AMINOTRANSFERASE 29 U/L (12-78); ALBUMIN 2.8 G/DL (3.4-5.0); ALBUMIN/GLOBULIN RATIO 0.7 (1.0-2.7); ALKALINE PHOSPHATASE 59 U/L (46-116); ANION GAP 7 mmol/L (5-15); ASPARTATE AMINO TRANSFERASE 26 U/L (15-37); BILIRUBIN,TOTAL 0.2 MG/DL (0.2-1.0); BLOOD UREA NITROGEN 25 mg/dL (7-18); CALCIUM 8.4 MG/DL (8.5-10.1); CARBON DIOXIDE 31 MMOL/L (21-32); CHLORIDE 107 MMOL/L (98-107); CREATININE 1.3 MG/DL (0.55-1.30); SODIUM 144 MMOL/L (136-145)
--- NOTE | 2019-10-27 07:15 | NUR ---
NURSE NOTES: Handoff received from DEAN Liz. Patient received awake and alert and sitting in bed, no acute signs of distress noted. patient denies any pain, patient has IV site clean dry and intact, saline locked, bed in the low and locked position with call light within reach, will continue to monitor patient.
[2019-10-27 07:29] LABS: PHOSPHORUS 4.5 MG/DL (2.5-4.9)
--- NOTE | 2019-10-27 07:56 | NUR ---
HAND-OFF: Report given to DEAN Land. Pt stable.
[2019-10-27 08:00] VITALS: BP 100/52
--- NOTE | 2019-10-27 08:27 | General Progress Note ---
Assessment/Plan Assessment/Plan: IMPRESSION: 1. Influenza positive. 2. Atrial fibrillation with rapid ventricular response, likely underlying bronchitis/bronchospasm. Atrial fibrillation is chronic. 3. Chronic pulmonary edema with fluid overload. 4. Hypothyroidism. 5. Respiratory distress. PLAN dc planning complete tamiflu off amio monitor for change clinically improve impression, plan, and exam edited and reviewed in detail care discussed with RN Subjective Allergies: Coded Allergies: MEPERIDINE (Verified Allergy, Unknown, 06/14/14) SULFAMETHOXAZOLE (Verified Allergy, Unknown, 06/14/14) TRIMETHOPRIM (Verified Allergy, Unknown, 06/14/14) Subjective overall improved rate control Objective Last 24 Hour Vital Signs Date Time Temp Pulse Resp B/P (MAP) Pulse Ox O2 Delivery O2 Flow Rate FiO2 10/27/19 07:46 97 Nasal Cannula 2.0 28 10/27/19 07:46 62 20 99 Nasal Cannula 2.0 28 58 20 97 10/27/19 05:48 115/65 10/27/19 04:54 96 10/27/19 04:00 79 10/27/19 04:00 97.8 87 20 115/65 (82) 98 10/27/19 03:21 76 21 98 Facial 30 80 16 99 Bi-Pap 30 10/27/19 03:18 80 16 99 Nasal Cannula 2.0 28 76 18 98 10/27/19 01:06 73 26 98 Facial 30 10/27/19 00:00 106 10/27/19 00:00 97.5 98 20 92/64 (73) 98 10/26/19 23:25 164 10/26/19 23:19 90 16 99 Nasal Cannula 2.0 28 86 16 98 10/26/19 21:23 100/66 10/26/19 21:00 Nasal Cannula 2.0 10/26/19 20:00 2.0 10/26/19 20:00 115 10/26/19 20:00 97.9 109 18 100/66 (77) 98 10/26/19 19:18 101 18 99 Nasal Cannula 2.0 28 99 18 98 10/26/19 19:17 98 Nasal Cannula 2.0 28 10/26/19 18:16 117 145/67 10/26/19 16:00 119 10/26/19 16:00 2.0 10/26/19 16:00 97.5 117 22 145/67 (93) 98 10/26/19 15:18 80 20 99 Nasal Cannula 2.0 28 74 20 97 10/26/19 15:16 112/63 10/26/19 12:05 2.0 10/26/19 12:00 124 10/26/19 12:00 97.7 122 22 113/68 (83) 96 10/26/19 11:54 2.0 10/26/19 10:48 110 20 99 Nasal Cannula 2.0 28 108 20 97 10/26/19 09:20 112/61 10/26/19 09:20 148 112/61 10/26/19 09:00 Nasal Cannula 2.0 Intake and Output 10/26/19 10/27/19 19:00 07:00 Intake Total 800 ml 800 ml Balance 800 ml 800 ml Intake Oral 800 ml 800 ml # Voids 4 7 # Bowel Movements 1 2 Laboratory Tests 10/27/19 06:30: Sodium Level 144, Potassium Level 4.0, Chloride Level 107, Carbon Dioxide Level 31, Anion Gap 7, Blood Urea Nitrogen 25H, Creatinine 1.3, Estimat Glomerular Filtration Rate 41.5, Glucose Level 97#, Calcium Level 8.4L, Phosphorus Level 4.5, Magnesium Level 2.3, Total Bilirubin 0.2, Aspartate Amino Transf (AST/SGOT ) 26, Alanine Aminotransferase (ALT/SGPT) 29, Alkaline Phosphatase 59, Troponin I 0.023, Pro-B-Type Natriuretic Peptide 1255H, Total Protein 6.9, Albumin 2.8L, Globulin 4.1, Albumin/Globulin Ratio 0.7L Height (Feet): 5 Height (Inches): 0.00 Weight (Pounds): 225 Objective GENERAL: A well-developed female. HEENT: Negative. Extraocular movements are grossly intact. NECK: Supple. LUNGS: improved breath sounds without rhonchi or wheeze CARDIAC: S1, S2. Irregularly irregular, but now more controlled. ABDOMEN: Overall soft, nontender. EXTREMITIES: Mild edema. NEUROLOGIC: Grossly nonfocal, alert. Osmin Samayoa MD Oct 27, 2019 08:27
[2019-10-27] MEDS: Losartan 50mg tab ORAL SCH (09:06)
[2019-10-27] MEDS: Ascorbic Acid 500mg tab ORAL SCH (09:06)
[2019-10-27] MEDS: Eliquis 5mg tablet ORAL SCH ×2 (09:06→17:18)
[2019-10-27] MEDS: Amiodarone 200mg tab ORAL SCH (09:07)
[2019-10-27] MEDS: Metoprolol Succinate XL 50mg tab ORAL SCH ×2 (09:07→17:19)
[2019-10-27] MEDS: Docusate 100mg cap ORAL SCH ×2 (09:07→17:19)
--- NOTE | 2019-10-27 10:22 | Cardiac Electrophysiology PN ---
Assessment/Plan Assessment/Plan 1. Atrial fibrillation with rapid ventricular response. I will increase metoprolol to 100 mg po b.i.d. and add Digoxin 0.125 mg po daily for better rate control. Continue Eliquis 5 mg b.i.d. and decrease amiodarone to 200 mg po daily 2. Nonsustained VT. Echo pending. Stat Troponin. Lexiscan Cardiolite today 2. Hypertensive heart disease. Continue Cozaar 50 daily, metoprolol 100 b.i.d., hydralazine 50 mg every 8 hours and Lasix 40 mg IV daily. 3. Congestive heart failure with diastolic dysfunction. Continue Lasix. Echo pending. 4. Hyperlipidemia, on Lipitor. 5. Influenza A. Further evaluation by Dr. Samayoa. The patient is currently on Solu-Medrol and ceftriaxone. GLENN RN Subjective Subjective In droplet isolation for Flu. Daughter at bedside. Had 12 beats of VT In Atrial Fib rate 95 but goes to up 170s Positive for flu, Objective Last 24 Hour Vital Signs Date Time Temp Pulse Resp B/P (MAP) Pulse Ox O2 Delivery O2 Flow Rate FiO2 10/27/19 09:07 98 100/52 10/27/19 09:06 100/52 10/27/19 08:00 97.9 98 20 100/52 (68) 98 10/27/19 07:46 97 Nasal Cannula 2.0 28 10/27/19 07:46 62 20 99 Nasal Cannula 2.0 28 58 20 97 10/27/19 05:48 115/65 10/27/19 04:54 96 10/27/19 04:00 79 10/27/19 04:00 97.8 87 20 115/65 (82) 98 10/27/19 03:21 76 21 98 Facial 30 80 16 99 Bi-Pap 30 10/27/19 03:18 80 16 99 Nasal Cannula 2.0 28 76 18 98 10/27/19 01:06 73 26 98 Facial 30 10/27/19 00:00 106 10/27/19 00:00 97.5 98 20 92/64 (73) 98 10/26/19 23:25 164 10/26/19 23:19 90 16 99 Nasal Cannula 2.0 28 86 16 98 10/26/19 21:23 100/66 10/26/19 21:00 Nasal Cannula 2.0 10/26/19 20:00 2.0 10/26/19 20:00 115 10/26/19 20:00 97.9 109 18 100/66 (77) 98 10/26/19 19:18 101 18 99 Nasal Cannula 2.0 28 99 18 98 10/26/19 19:17 98 Nasal Cannula 2.0 28 10/26/19 18:16 117 145/67 10/26/19 16:00 119 10/26/19 16:00 2.0 10/26/19 16:00 97.5 117 22 145/67 (93) 98 10/26/19 15:18 80 20 99 Nasal Cannula 2.0 28 74 20 97 10/26/19 15:16 112/63 10/26/19 12:05 2.0 10/26/19 12:00 124 10/26/19 12:00 97.7 122 22 113/68 (83) 96 10/26/19 11:54 2.0 10/26/19 10:48 110 20 99 Nasal Cannula 2.0 28 108 20 97 Intake and Output 10/26/19 10/27/19 19:00 07:00 Intake Total 800 ml 800 ml Balance 800 ml 800 ml Intake Oral 800 ml 800 ml # Voids 4 7 # Bowel Movements 1 2 Laboratory Tests Test 10/27/19 06:30 Sodium Level 144 MMOL/L (136-145) Potassium Level 4.0 MMOL/L (3.5-5.1) Chloride Level 107 MMOL/L (98-107) Carbon Dioxide Level 31 MMOL/L (21-32) Anion Gap 7 mmol/L (5-15) Blood Urea Nitrogen 25 mg/dL (7-18) H Creatinine 1.3 MG/DL (0.55-1.30) Estimat Glomerular Filtration Rate 41.5 mL/min (>60) Glucose Level 97 MG/DL (74-106) # Calcium Level 8.4 MG/DL (8.5-10.1) L Phosphorus Level 4.5 MG/DL (2.5-4.9) Magnesium Level 2.3 MG/DL (1.8-2.4) Total Bilirubin 0.2 MG/DL (0.2-1.0) Aspartate Amino Transf (AST/SGOT) 26 U/L (15-37) Alanine Aminotransferase (ALT/SGPT) 29 U/L (12-78) Alkaline Phosphatase 59 U/L (46-116) Troponin I 0.023 ng/mL (0.000-0.056) Pro-B-Type Natriuretic Peptide 1255 pg/mL (0-125) H Total Protein 6.9 G/DL (6.4-8.2) Albumin 2.8 G/DL (3.4-5.0) L Globulin 4.1 g/dL Albumin/Globulin Ratio 0.7 (1.0-2.7) L Objective NECK: No JVD LUNGS: Clear. CARDIOVASCULAR: Irregular S1, S2 with no gallop. ABDOMEN: Soft. EXTREMITIES: No pitting edema. Michael Saunders MD Oct 27, 2019 10:22
[2019-10-27] MEDS ORDERED: Lexiscan 0.4mg/5ml syringe IV SCH (10:30)
[2019-10-27 12:00] VITALS: BP 130/82
[2019-10-27 15:58] VITALS: BP 120/67
--- NOTE | 2019-10-27 19:41 | NUR ---
HAND-OFF: Report given to DEAN Ibanez.
[2019-10-27 20:00] VITALS: BP 105/68
--- NOTE | 2019-10-27 20:26 | NUR ---
NURSE NOTES: Received pt from DEAN Ibanez. Pt awake, alert, and talkative. Bed in lowest position. Call light within reach. Will continue to monitor.
[2019-10-27] MEDS: cefTRIAXone 1 GM in D5W 55 ML IVPB SCH (21:31)
[2019-10-27] MEDS: Atorvastatin 20mg tab ORAL SCH (21:32)
[2019-10-28] VITALS (7 sets, daily range): BP systolic 96–111; BP diastolic 55–71
[2019-10-28] MEDS: Albuterol/Ipratropium 3ml neb HHN SCH ×5 (03:05→19:00)
[2019-10-28] MEDS: HydrALAZINE 50mg tab ORAL SCH (06:00)
[2019-10-28] MEDS ORDERED: Lexiscan 0.4mg/5ml syringe IV PRN (07:15)
--- NOTE | 2019-10-28 08:00 | General Progress Note ---
Assessment/Plan Assessment/Plan: IMPRESSION: 1. Influenza positive. 2. Atrial fibrillation with rapid ventricular response, with NSVT 3. Chronic pulmonary edema with fluid overload. 4. Hypothyroidism. 5. Respiratory distress. resolved PLAN dc planning per cardiology stress test pending complete tamiflu antiarrythmitics added monitor for change clinically improved but concern for CAD discussed impression, plan, and exam edited and reviewed in detail care discussed with RN Subjective Allergies: Coded Allergies: MEPERIDINE (Verified Allergy, Unknown, 06/14/14) SULFAMETHOXAZOLE (Verified Allergy, Unknown, 06/14/14) TRIMETHOPRIM (Verified Allergy, Unknown, 06/14/14) Subjective overall improved rate control at rest bouts of rapid afib and VT d/w cards Objective Last 24 Hour Vital Signs Date Time Temp Pulse Resp B/P (MAP) Pulse Ox O2 Delivery O2 Flow Rate FiO2 10/28/19 04:00 2.0 10/28/19 04:00 98.4 99 18 101/66 (78) 97 10/28/19 03:05 86 16 99 Nasal Cannula 2.0 28 79 16 98 10/28/19 00:00 97.0 91 18 100/71 (81) 97 10/27/19 21:00 Nasal Cannula 2.0 10/27/19 20:55 97 Nasal Cannula 2.0 28 10/27/19 20:50 77 20 100 Nasal Cannula 2.0 28 72 18 99 10/27/19 20:00 97.9 84 18 105/68 (80) 96 10/27/19 17:19 99 120/67 10/27/19 16:00 2.0 10/27/19 16:00 115 10/27/19 15:58 98.6 99 17 120/67 (84) 95 10/27/19 15:22 71 20 100 Nasal Cannula 2.0 28 67 20 98 10/27/19 14:06 130/82 10/27/19 12:00 98.0 74 18 130/82 (98) 96 10/27/19 12:00 96 10/27/19 12:00 2.0 10/27/19 11:51 81 20 99 Nasal Cannula 2.0 28 77 20 98 10/27/19 09:07 98 100/52 10/27/19 09:06 100/52 10/27/19 09:00 Nasal Cannula 2.0 10/27/19 08:00 2.0 10/27/19 08:00 97.9 98 20 100/52 (68) 98 10/27/19 08:00 102 Intake and Output 10/27/19 10/28/19 19:00 07:00 Intake Total 800 ml Balance 800 ml Other 800 ml # Voids 3 # Bowel Movements 1 1 Laboratory Tests 10/27/19 10:40: Troponin I 0.000 Height (Feet): 5 Height (Inches): 0.00 Weight (Pounds): 225 Objective GENERAL: A well-developed female. HEENT: Negative. Extraocular movements are grossly intact. NECK: Supple. LUNGS: improved breath sounds without rhonchi or wheeze CARDIAC: S1, S2. Irregularly irregular, but now more controlled. ABDOMEN: Overall soft, nontender. EXTREMITIES: Mild edema. NEUROLOGIC: Grossly nonfocal, alert. Osmin Samayoa MD Oct 28, 2019 08:00
--- NOTE | 2019-10-28 08:00 | NUR ---
HAND-OFF: Report given to DEAN Handy. pt stable.
[2019-10-28] MEDS: Amiodarone 200mg tab ORAL SCH (08:22)
[2019-10-28] MEDS: Losartan 50mg tab ORAL SCH (08:22)
[2019-10-28] MEDS: Metoprolol Succinate XL 50mg tab ORAL SCH ×2 (08:23→17:04)
[2019-10-28] MEDS: Digoxin 0.125mg tab ORAL SCH (08:28)
[2019-10-28] MEDS: Docusate 100mg cap ORAL SCH ×2 (08:28→17:03)
[2019-10-28] MEDS: Eliquis 5mg tablet ORAL SCH ×2 (08:29→17:03)
[2019-10-28] MEDS: Ascorbic Acid 500mg tab ORAL SCH (08:29)
--- NOTE | 2019-10-28 12:27 | Cardiac Electrophysiology PN ---
Assessment/Plan Assessment/Plan 1. Atrial fibrillation with rapid ventricular response. Now on metoprolol 100 mg po bid, amiodarone 200 mg po daily and Digoxin 0.125 mg po daily Continue Eliquis 5 mg b.i.d. 2. Nonsustained VT. Echo EF 60%. Lexiscan Cardiolite Wednesday 2. Hypertensive heart disease. Continue Cozaar 50 daily, metoprolol 100 b.i.d., and Lasix 40 mg IV daily. Decrease hydralazine to 25 mg bid 3. Congestive heart failure with diastolic dysfunction EF 60%. Continue Lasix. 4. Hyperlipidemia, on Lipitor. 5. Influenza A. Further evaluation by Dr. Samayoa. The patient is currently on Solu-Medrol and ceftriaxone. GLENN RN Subjective Subjective In droplet isolation for Flu. Had 12 beats of VT In Atrial Fib but still goes to up 170s Objective Last 24 Hour Vital Signs Date Time Temp Pulse Resp B/P (MAP) Pulse Ox O2 Delivery O2 Flow Rate FiO2 10/28/19 11:15 80 14 100 Nasal Cannula 2.0 87 16 96 10/28/19 09:53 97.9 91 20 97/68 (78) 100 10/28/19 09:00 Nasal Cannula 2.0 10/28/19 08:28 123 10/28/19 08:23 123 97/68 10/28/19 08:22 97/68 10/28/19 08:09 98 Nasal Cannula 2.0 28 10/28/19 08:00 97.9 91 20 97/68 (78) 100 10/28/19 08:00 87 10/28/19 08:00 2.0 10/28/19 07:54 79 16 100 Nasal Cannula 2.0 80 14 97 10/28/19 04:00 2.0 10/28/19 04:00 82 10/28/19 04:00 98.4 99 18 101/66 (78) 97 10/28/19 03:05 86 16 99 Nasal Cannula 2.0 28 79 16 98 10/28/19 00:00 127 10/28/19 00:00 97.0 91 18 100/71 (81) 97 10/27/19 21:00 Nasal Cannula 2.0 10/27/19 20:55 97 Nasal Cannula 2.0 28 10/27/19 20:50 77 20 100 Nasal Cannula 2.0 28 72 18 99 10/27/19 20:00 97.9 84 18 105/68 (80) 96 10/27/19 20:00 95 10/27/19 17:19 99 120/67 10/27/19 16:00 2.0 10/27/19 16:00 115 10/27/19 15:58 98.6 99 17 120/67 (84) 95 10/27/19 15:22 71 20 100 Nasal Cannula 2.0 28 67 20 98 10/27/19 14:06 130/82 Intake and Output 10/27/19 10/28/19 19:00 07:00 Intake Total 800 ml Balance 800 ml Other 800 ml # Voids 3 # Bowel Movements 1 1 Objective NECK: No JVD LUNGS: Clear. CARDIOVASCULAR: Irregular S1, S2 with no gallop. ABDOMEN: Soft. EXTREMITIES: No pitting edema. Michael Saunders MD Oct 28, 2019 12:27
[2019-10-28] MEDS: HydrALAZINE 25mg tab ORAL SCH (17:09)
--- NOTE | 2019-10-28 19:21 | NUR ---
NURSE NOTES: report given to ana arnold rn
--- NOTE | 2019-10-28 19:52 | NUR ---
NURSE NOTES: Received report from DEAN Winchester. Patient is awake lying semi-segal's; resting comfortably. No signs of acute distress noted; denies pain at this time. On 2L nasal cannula. and daughter at bedside. AOx4; able to make needs known. Ambulates with a standard walker. Checked IV site; patent and flushed. No erythema, bleeding, or infiltration noted. Bed at lowest position, brakes on, siderails up x3. Call light within reach. Will continue to monitor.
[2019-10-28] MEDS: cefTRIAXone 1 GM in D5W 55 ML IVPB SCH (22:01)
[2019-10-28] MEDS: Atorvastatin 20mg tab ORAL SCH (22:01)
[2019-10-29] VITALS: BP 92/53
[2019-10-29] MEDS: Albuterol/Ipratropium 3ml neb HHN SCH ×7 (00:13→23:58)
[2019-10-29 04:00] VITALS: BP 134/60
--- NOTE | 2019-10-29 04:44 | NUR ---
NURSE NOTES: Patient is asleep lying semi-segal's; resting comfortably. No signs of acute distress or pain noted at this time. On 2L nasal cannula. Daughter at bedside.
--- NOTE | 2019-10-29 07:28 | NUR ---
HAND-OFF: Report given to DEAN Sheikh. Patient is awake lying semi-segal's receiving breathing treatment. In stable condition.
--- NOTE | 2019-10-29 07:30 | NUR ---
NURSE NOTES: Received pt in bed, AAO x 4. On NC 2L/min. No s/s of distress/pain. Iv on R hand 22g noted. Daughter at the bedside. Side rails x 2. Bed in the lowest and locked. Call light within reach. Will continue to monitor
[2019-10-29 08:00] VITALS: BP 109/62
[2019-10-29] MEDS: HydrALAZINE 25mg tab ORAL SCH ×2 (08:39→17:16)
[2019-10-29] MEDS: Amiodarone 200mg tab ORAL SCH (08:39)
[2019-10-29] MEDS: Losartan 50mg tab ORAL SCH (08:40)
[2019-10-29] MEDS: Metoprolol Succinate XL 50mg tab ORAL SCH ×2 (08:48→17:19)
[2019-10-29] MEDS: Digoxin 0.125mg tab ORAL SCH (08:48)
[2019-10-29] MEDS: Docusate 100mg cap ORAL SCH ×2 (08:48→17:19)
[2019-10-29] MEDS: Ascorbic Acid 500mg tab ORAL SCH (08:49)
[2019-10-29] MEDS: Eliquis 5mg tablet ORAL SCH ×2 (08:49→17:19)
--- NOTE | 2019-10-29 10:31 | General Progress Note ---
Assessment/Plan Assessment/Plan: IMPRESSION: 1. Influenza positive. 2. Atrial fibrillation with rapid ventricular response, with NSVT 3. Chronic pulmonary edema with fluid overload. 4. Hypothyroidism. 5. Respiratory distress. resolved PLAN dc planning once stress test completed january dc isolation completed tamiflu antiarrythmitics added monitor for change clinically improved but concern for CAD discussed impression, plan, and exam edited and reviewed in detail care discussed with RN Subjective Allergies: Coded Allergies: MEPERIDINE (Verified Allergy, Unknown, 06/14/14) SULFAMETHOXAZOLE (Verified Allergy, Unknown, 06/14/14) TRIMETHOPRIM (Verified Allergy, Unknown, 06/14/14) Subjective overall improved rate control at rest; no distress bouts of rapid afib and VT- no recurrence d/w cards Objective Last 24 Hour Vital Signs Date Time Temp Pulse Resp B/P (MAP) Pulse Ox O2 Delivery O2 Flow Rate FiO2 10/29/19 08:48 85 10/29/19 08:48 85 109/62 10/29/19 08:40 109/62 10/29/19 08:39 109/62 10/29/19 08:34 Nasal Cannula 2.0 10/29/19 08:33 2.0 10/29/19 08:00 97.7 85 20 109/62 (78) 99 10/29/19 08:00 97 10/29/19 07:17 96 Nasal Cannula 2.0 28 10/29/19 07:16 99 18 100 Nasal Cannula 2.0 28 90 16 96 10/29/19 04:16 90 18 100 Nasal Cannula 2.0 28 85 18 98 10/29/19 04:00 2.0 10/29/19 04:00 97.5 85 19 134/60 (84) 98 10/29/19 04:00 85 10/29/19 00:13 96 18 100 Nasal Cannula 2.0 28 92 18 97 10/29/19 00:00 97.5 94 18 92/53 (66) 99 10/29/19 00:00 76 10/29/19 00:00 2.0 10/28/19 21:51 98 Nasal Cannula 2.0 28 10/28/19 21:00 Nasal Cannula 2.0 10/28/19 20:00 98.1 82 18 108/55 (72) 99 10/28/19 20:00 2.0 10/28/19 20:00 97 10/28/19 17:09 116/66 10/28/19 17:04 92 116/66 10/28/19 16:00 2.0 10/28/19 16:00 97.9 83 20 96/56 (69) 97 10/28/19 15:59 104 10/28/19 12:00 98.1 94 20 111/56 (74) 96 10/28/19 12:00 2.0 10/28/19 11:46 95 10/28/19 11:15 80 14 100 Nasal Cannula 2.0 28 87 16 96 Intake and Output 10/28/19 10/29/19 19:00 07:00 Intake Total 295 ml Balance 295 ml Intake Oral 240 ml IV Total 55 ml # Voids 3 2 # Bowel Movements 2 Laboratory Tests 10/29/19 05:55: Digoxin Level < 0.2L Height (Feet): 5 Height (Inches): 0.00 Weight (Pounds): 225 Objective GENERAL: A well-developed female. HEENT: Negative. Extraocular movements are grossly intact. NECK: Supple. LUNGS: improved breath sounds without rhonchi or wheeze CARDIAC: S1, S2. Irregularly irregular, but now more controlled. ABDOMEN: Overall soft, nontender. EXTREMITIES: Mild edema. NEUROLOGIC: Grossly nonfocal, alert. Osmin Samayoa MD Oct 29, 2019 10:31
[2019-10-29 12:00] VITALS: BP 105/68
[2019-10-29 16:00] VITALS: BP 124/97
--- NOTE | 2019-10-29 19:23 | NUR ---
HAND-OFF: Report given to DEAN Arias.
--- NOTE | 2019-10-29 19:28 | NUR ---
NURSE NOTES: Received report from DEAN Sheikh. Patient is awake lying semi-segal's; resting comfortably. No signs of acute distress noted; denies pain at this time. On 2L nasal cannula. AOx4; able to make needs known. Ambulates with a standard walker and assist. Checked IV site; patent and flushed. No erythema, bleeding, or infiltration noted. Bed at lowest position, brakes on, siderails up x3. Call light within reach. Will continue to monitor.
--- NOTE | 2019-10-29 19:41 | NUR ---
NURSE NOTES: Notified Dr. Saunders that patient is having a Lexiscan stress test tomorrow, but she has a history of asthma. Awaiting callback for any further orders.
[2019-10-29 20:00] VITALS: BP 143/63
--- NOTE | 2019-10-29 20:13 | NUR ---
NURSE NOTES: Received callback from Dr. Saunders. No new orders at this time.
[2019-10-29] MEDS: Atorvastatin 20mg tab ORAL SCH (21:18)
[2019-10-29] MEDS: cefTRIAXone 1 GM in D5W 55 ML IVPB SCH (21:18)
[2019-10-30] VITALS: BP 128/78
--- NOTE | 2019-10-30 03:15 | NUR ---
NURSE NOTES: Patient is asleep lying semi-segal's; resting comfortably. No signs of acute distress or pain noted at this time. Patient NPO for stress test later today. Daughter at bedside.
[2019-10-30] MEDS: Albuterol/Ipratropium 3ml neb HHN SCH ×3 (03:16→11:17)
[2019-10-30 04:00] VITALS: BP 98/65
--- NOTE | 2019-10-30 07:00 | NUR ---
HAND-OFF: Report given to DEAN Sheikh. Patient is asleep lying semi-segal's; resting comfortably. Daughter at bedside. Endorsed to oncoming shift RN regarding patient's stress test later today; verbalized understanding. In stable condition.
--- NOTE | 2019-10-30 07:05 | NUR ---
NURSE NOTES: Received pt in bed, sleeping. On NC 2L. No s/s of distress/pain. Pt on NPO. IV on R hand 22g noted. Side rails x 2. Bedside commode noted. Bed in the lowest and locked. Call light within reach. Will continue to monitor
[2019-10-30] MEDS: HydrALAZINE 25mg tab ORAL SCH (07:31)
[2019-10-30] MEDS: Digoxin 0.125mg tab ORAL SCH ×2 (07:32→08:52)
[2019-10-30] MEDS: Amiodarone 200mg tab ORAL SCH (07:32)
[2019-10-30] MEDS: Losartan 50mg tab ORAL SCH (07:32)
[2019-10-30] MEDS: Metoprolol Succinate XL 50mg tab ORAL SCH (07:34)
--- NOTE | 2019-10-30 07:37 | Cardiac Electrophysiology PN ---
Assessment/Plan Assessment/Plan 1. Atrial fibrillation with rapid ventricular response. Controlled now on metoprolol 100 mg po bid, amiodarone 200 mg po daily and Digoxin 0.125 mg po daily Continue Eliquis 5 mg b.i.d. 2. 12 beats of Nonsustained VT. Echo EF 60%. Lexiscan Vs Dobutamine Cardiolite today 2. Hypertensive heart disease. Continue Cozaar 50 daily, metoprolol 100 bid, Lasix 40 mg IV daily and hydralazine 25 mg bid 3. Congestive heart failure with diastolic dysfunction EF 60%. Continue Lasix. 4. Hyperlipidemia, on Lipitor. 5. Influenza A. Further evaluation by Dr. Samayoa. Off isolation DW RN Subjective Subjective Droplet isolation cancellled as completed the Tamiflu. No further VT. In Atrial Fib but rate better. Scheduled for Lexiscan vs Dobutamine Cardiolite today( Has asthma but stable now ) Objective Last 24 Hour Vital Signs Date Time Temp Pulse Resp B/P (MAP) Pulse Ox O2 Delivery O2 Flow Rate FiO2 10/30/19 04:00 2.0 10/30/19 04:00 100 10/30/19 04:00 97.8 72 20 98/65 (76) 97 10/30/19 03:18 77 18 100 Nasal Cannula 2.0 28 75 18 98 10/30/19 00:01 80 12 100 Nasal Cannula 2.0 28 78 12 98 10/30/19 00:00 2.0 10/30/19 00:00 98 Nasal Cannula 2.0 28 10/30/19 00:00 76 10/30/19 00:00 96.8 80 18 128/78 (95) 97 10/29/19 21:00 Nasal Cannula 2.0 10/29/19 20:04 71 17 100 Nasal Cannula 2.0 28 70 18 95 10/29/19 20:04 95 Nasal Cannula 2.0 28 10/29/19 20:00 2.0 10/29/19 20:00 98.2 73 18 143/63 (89) 96 10/29/19 20:00 75 10/29/19 17:19 83 124/97 10/29/19 17:16 124/97 10/29/19 16:00 98.0 83 20 124/97 (106) 98 10/29/19 16:00 94 10/29/19 16:00 2.0 10/29/19 15:41 67 14 99 Nasal Cannula 2.0 28 64 12 96 10/29/19 12:00 83 10/29/19 12:00 2.0 10/29/19 12:00 98.1 84 20 105/68 (80) 100 10/29/19 11:30 69 16 100 Nasal Cannula 2.0 28 70 16 97 10/29/19 08:48 85 10/29/19 08:48 85 109/62 10/29/19 08:40 109/62 10/29/19 08:39 109/62 10/29/19 08:34 Nasal Cannula 2.0 10/29/19 08:33 2.0 10/29/19 08:00 97.7 85 20 109/62 (78) 99 10/29/19 08:00 97 Intake and Output 10/29/19 10/30/19 19:00 07:00 Intake Total 55 ml Balance 55 ml IV Total 55 ml # Voids 3 2 Objective NECK: No JVD LUNGS: Clear. CARDIOVASCULAR: Irregular S1, S2 with no murmur ABDOMEN: Soft. EXTREMITIES: No pitting edema. Michael Saunders MD Oct 30, 2019 07:37
[2019-10-30 08:00] VITALS: BP 95/56
--- NOTE | 2019-10-30 08:35 | General Progress Note ---
Assessment/Plan Assessment/Plan: IMPRESSION: 1. Influenza positive. 2. Atrial fibrillation with rapid ventricular response, with NSVT 3. Chronic pulmonary edema with fluid overload. 4. Hypothyroidism. 5. Respiratory distress. resolved PLAN dc planning once stress test completed, hope today may dc isolation rate monitoring monitor for change and recommend further clinically improved but concern for CAD discussed impression, plan, and exam edited and reviewed in detail care discussed with RN Subjective Allergies: Coded Allergies: MEPERIDINE (Verified Allergy, Unknown, 06/14/14) SULFAMETHOXAZOLE (Verified Allergy, Unknown, 06/14/14) TRIMETHOPRIM (Verified Allergy, Unknown, 06/14/14) Subjective overall improved rate control at rest; no distress comfortable at present d/w cards Objective Last 24 Hour Vital Signs Date Time Temp Pulse Resp B/P (MAP) Pulse Ox O2 Delivery O2 Flow Rate FiO2 10/30/19 08:00 96.3 83 18 95/56 (69) 97 10/30/19 04:00 2.0 10/30/19 04:00 100 10/30/19 04:00 97.8 72 20 98/65 (76) 97 10/30/19 03:18 77 18 100 Nasal Cannula 2.0 28 75 18 98 10/30/19 00:01 80 12 100 Nasal Cannula 2.0 28 78 12 98 10/30/19 00:00 2.0 10/30/19 00:00 98 Nasal Cannula 2.0 28 10/30/19 00:00 76 10/30/19 00:00 96.8 80 18 128/78 (95) 97 10/29/19 21:00 Nasal Cannula 2.0 10/29/19 20:04 71 17 100 Nasal Cannula 2.0 28 70 18 95 10/29/19 20:04 95 Nasal Cannula 2.0 28 10/29/19 20:00 2.0 10/29/19 20:00 98.2 73 18 143/63 (89) 96 10/29/19 20:00 75 10/29/19 17:19 83 124/97 10/29/19 17:16 124/97 10/29/19 16:00 98.0 83 20 124/97 (106) 98 10/29/19 16:00 94 10/29/19 16:00 2.0 10/29/19 15:41 67 14 99 Nasal Cannula 2.0 28 64 12 96 10/29/19 12:00 83 10/29/19 12:00 2.0 10/29/19 12:00 98.1 84 20 105/68 (80) 100 10/29/19 11:30 69 16 100 Nasal Cannula 2.0 28 70 16 97 10/29/19 08:48 85 10/29/19 08:48 85 109/62 10/29/19 08:40 109/62 10/29/19 08:39 109/62 10/29/19 08:34 Nasal Cannula 2.0 Intake and Output 10/29/19 10/30/19 19:00 07:00 Intake Total 55 ml Balance 55 ml IV Total 55 ml # Voids 3 2 Height (Feet): 5 Height (Inches): 0.00 Weight (Pounds): 225 Objective GENERAL: A well-developed female. HEENT: Negative. Extraocular movements are grossly intact. NECK: Supple. LUNGS: improved breath sounds without rhonchi or wheeze CARDIAC: S1, S2. Irregularly irregular, but now more controlled. ABDOMEN: Overall soft, nontender. EXTREMITIES: Mild edema. NEUROLOGIC: Grossly nonfocal, alert. Osmin Samayoa MD Oct 30, 2019 08:35
[2019-10-30] MEDS: Eliquis 5mg tablet ORAL SCH (08:52)
[2019-10-30] MEDS: Docusate 100mg cap ORAL SCH (08:53)
[2019-10-30] MEDS: Ascorbic Acid 500mg tab ORAL SCH (08:53)
--- NOTE | 2019-10-30 08:57 | NUR ---
CARDIOLOGY Dr. Justin refuses to do Lexiscan because pt is wheezing with active asthma. When asked about Dobutamine, he also refuses due to Atrial Fibrillation.
--- NOTE | 2019-10-30 09:00 | NUR ---
CASE MANAGEMENT:REVIEW 10/30/19 SI: AFIB W/RVR. CHF. INFLUENZA A 96.3 83 18 95/56 97% ON 2L/NC IS: IV LEXISCAN X1 FOR STRESS TEST TAMIFLU PO BID IV LASIX QD IV ROCEPHIN Q24 HYDRALAZINE PO BID AMIODARONE PO QD DIGOXIN PO QD TOPROL XL PO BID COZAAR PO QD ELIQUIS PO BID DUONEB Q4HRS RTC : TELEMETRY STATUS DCP: FROM HOME ~ DIRECT ADMIT?
[2019-10-30 12:00] VITALS: BP 98/58
--- NOTE | 2019-10-30 12:19 | NUR ---
DISCHARGE PLANNED PLAN IS FOR PATIENT TO RETURN HOME INOCULATOR HAS FAXED CLINICALS TO: [facility] 1999 T: [phone] F: [phone]
--- NOTE | 2019-10-30 12:40 | NUR ---
NURSE NOTES: Patient was discharged to home via private vehicle accompanied by family member. Escorted pt down to the first floor. ID and IV was removed. No s/s of infection on the removal site. Prescription will be sent by Dr. Samayoa. Discharge instruction were given and to follow up with and stress test as outpatient. Home health was set by family service caseworker. Belongings were accounted and given to patient.
[2019-10-30] MEDS ORDERED: Metoprolol Succinate XL 100mg tab ORAL SCH (21:00)
--- NOTE | 2019-11-01 07:00 | CDS Physician Query ---
Clarification is required for compliance, coding accuracy, and to reflect severity of illness for this patient Dear Michael Hartman MD Date: 11/01/2019 Warehouse Analyst/CDS Name: Ryan Sheehan Assessment/Plan Assessment/Plan 1. Atrial fibrillation with rapid ventricular response. Controlled now on metoprolol 100 mg po bid, amiodarone 200 mg po daily and Digoxin 0.125 mg po daily Continue Eliquis 5 mg b.i.d. 2. 12 beats of Nonsustained VT. Echo EF 60%. Lexiscan Vs Dobutamine Cardiolite today 2. Hypertensive heart disease. Continue Cozaar 50 daily, metoprolol 100 bid, Lasix 40 mg IV daily and hydralazine 25 mg bid 3. Congestive heart failure with diastolic dysfunction EF 60%. Continue Lasix. 4. Hyperlipidemia, on Lipitor. 5. Influenza A. Further evaluation by Dr. Samayoa. Off isolation BNP: 1255 "Heart Failure / CHF" documented in Consultation notes Please Clarify: Acuity [] Acute [] Chronic [] Acute on Chronic Present on Admission: [] Yes [] No [] Clinically Undetermined Physician signature Date Please also document in your Progress Notes and/or Discharge Summary and indicate if the condition was present on admission. MTDD
--- NOTE | 2019-11-01 08:49 | Discharge Summary ---
Discharge Summary Discharge Summary _ DATE OF ADMISSION: 10/25/2019 DATE OF DISCHARGE: 10/30/2019 DISCHARGED BY: Dr. Samayoa REASON FOR ADMISSION: [] 64 years old female with past medical history of respiratory failure, atrial fibrillation, asthma, hypothyroidism, atrial fibrillation, hypertension, hypercholesterolemia, presented to the office on 129 with increased shortness of breath and respiratory distress CONSULTANTS: [employer] Dr. Tabares HOSPITAL COURSE: Patient admitted to telemetry floor. Patient started on Tamiflu and was placed in respiratory isolation . Patient started on diuresis with close monitoring of volume and cardiorenal parameters. Patient initially received IV Cardizem for rate control. Patient had chronic atrial fibrillation, and rapid ventricular response was likely due to underlying bronchospasm. Anticoagulation with Eliquis continued. Serial troponin were negative. Echocardiogram demonstrated preserved ejection fraction of 60% with mild left ventricular hypertrophy. Heart rate was further controlled with beta-juliet , amiodarone and digoxin. Eliquis continued. No evidence of bleeding. Patient demonstrated on telemetry 12 beats of nonsustained ventricular tachycardia. Nuclear stress test was planned, but cancelled by [employer] due to asthma / bronchospasm and atrial fibrillation. Recommended outpatient stress test. Blood pressure was managed with angiotensin receptor juliet, beta-juliet Lasix and hydralazine. Statin continued. GI prophylaxis provided. Supplemental oxygen provided and titrated to keep pulse oximetry above 92%. Pulmonary toilet with bronchodilator provided. Isolation discontinued, since patient completed Tamiflu. Heart rate stabilized. Patient clinically stabilized and was ready for patient was discharged home with home health services. FINAL DIAGNOSES: Influenza positive Atrial fibrillation with rapid ventricular response Hyperlipidemia Chronic pulmonary edema with fluid overload Congestive heart failure with diastolic dysfunction Respiratory distress 12 beats of nonsustained ventricular tachycardia Hypertensive heart disease Hypothyroidism DISCHARGE MEDICATIONS: List of medication provided to patient DISCHARGE INSTRUCTIONS: Patient was discharged home with home health services. Follow up with primary care provider in one week. I have been assigned to dictate discharge summary for this account. I was not involved in the patient's management. Hannah Valdes NP Nov 01, 2019 08:49
== END 2019-10-30 12:45 | disposition home health service (06) | DRG 292 ==
LOC: 2E 17:23
DX: I11.0 Hypertensive heart disease with heart failure (principal); I48.20 Chronic atrial fibrillation, unspecified; I47.2 Ventricular tachycardia; I50.33 Acute on chronic diastolic (congestive) heart failure; R06.03 Acute respiratory distress; J10.1 Influenza due to other identified influenza virus with other respiratory manifestations; E03.9 Hypothyroidism, unspecified; Z79.01 Long term (current) use of anticoagulants; E78.5 Hyperlipidemia, unspecified; Z86.73 Personal history of transient ischemic attack (TIA), and cerebral infarction without residual deficits; Z88.1 Allergy status to other antibiotic agents; Z88.2 Allergy status to sulfonamides; Z88.8 Allergy status to other drugs, medicaments and biological substances
CPT/HCPCS: 36415; 71045; 80048; 80053; 80162; 83735; 83880; 84100; 84484; 85007; 85025; 93005; 93306; 94640; 94660; 94664; J2785; J7620